=== PATIENT | male | born 1980 | race African-American/Black ===

== ENCOUNTER 2016-05-26 17:53 | Emergency (ER) | payer SELFPAY ==
[~2016-05-26] VITALS: Ht 172.7 cm; Wt 80.5 kg
[~2016-05-26 17:53] MED LIST: FLUC150T PO; MICO2CRE4 TOP
[2016-05-26 17:54] VITALS: BP 144/80; PULSE 50; RESP 16; TEMP 98.7; O2SAT 100
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
[2016-05-26] MEDS ORDERED: PROPARACAINE HCL 0.5% OPHT SOLN 15 ML BTL RIGHT EYE ONE (19:30)
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
[2016-05-26] MEDS ORDERED: PRED1SUS RIGHT EYE (19:57)
[2016-05-26] MEDS ORDERED: TYLETAB34 PO (19:57)
[2016-05-26] MEDS ORDERED: IBUP800T23 PO (19:57)
[2016-05-26] MEDS ORDERED: prednisoLONE ACETATE 1% OPHT SUSP 5 ML BTL RIGHT EYE ONE (20:00)
== END 2016-05-26 20:26 | disposition home or self-care (01) ==
LOC: NEPK 17:53
DX: H20.9 Unspecified iridocyclitis (principal)
CPT/HCPCS: 99283

== ENCOUNTER 2017-02-14 09:34 | Emergency (ER) | payer SELFPAY ==
[~2017-02-14] VITALS: Ht 172.7 cm; Wt 75.0 kg
[~2017-02-14 09:34] MED LIST changes: -FLUC150T PO; +IBUP1TAB7 PO; -MICO2CRE4 TOP; +PRED1SUS RIGHT EYE; +TYLETAB34 PO
[2017-02-14 09:36] VITALS: BP 160/82; PULSE 60; RESP 16; TEMP 98.8; O2SAT 99
[2017-02-14] MEDS ORDERED: KETOROLAC TROMETHAMINE 60 MG/2 ML (IM) VIAL IM ONE (10:15)
--- NOTE | 2017-02-14 10:21 | PD ---
HPI Chief Complaint: Musculoskeletal Complaint Time Seen by Provider: 09:58 Travel History International Travel<30 days: No Contact w/Intl Traveler<30days: No Traveled to known affect area: No History of Present Illness HPI The patient is a 36-year-old [place] male who presents emergency department for left-sided chest pain. The patient states he was lifting his mother yesterday after she had a seizure, after he put his mother down, he developed some left-sided chest pain. The chest pain is located lateral aspect left chest, worse with certain types of movement, and inspiration. He denies any shortness of breath. He denies any pain with coughing. He denies any associated nausea, vomiting, or abdominal pain. He denies any direct trauma to the affected area, however, does state it started after he lifted his mother, after she had a seizure. He denies any associated cough. He denies any accompanying fever, chills, or sweats. PFSH Past Medical History Medical History: Denies Significant Hx Diminished Hearing: No Immunizations Current: Yes Past Surgical History Surgical History: No Previous Surgery Social History Alcohol Use: Yes (OCC) Tobacco Use: No Substance Use: No Allergies-Medications (Allergen,Severity, Reaction): Coded Allergies: No Known Allergies (Unverified , 05/26/16) Reported Meds & Prescriptions Reported Meds & Active Scripts Active No Active Prescriptions or Reported Medications Review of Systems Except as stated in HPI: all other systems reviewed are Neg General / Constitutional: No: Fever, Chills HENT: No: Lightheadedness Cardiovascular: Positive: Chest Pain or Discomfort Respiratory: No: Cough, Shortness of Breath Gastrointestinal: No: Nausea, Vomiting Physical Exam Narrative GENERAL: Awake, alert, pleasant 36-year-old male who appears his stated age and is in no acute respiratory distress. SKIN: Focused skin assessment warm/dry. HEAD: Atraumatic. Normocephalic. EYES: Pupils equal and round. No scleral icterus. No injection or drainage. ENT: No nasal bleeding or discharge. Mucous membranes pink and moist. NECK: Trachea midline. No JVD. CARDIOVASCULAR: Regular rate and rhythm. No murmur appreciated. Palpation left chest wall does not reproduce pain, however, rotation of the thorax the left and right reproduces pain. No crepitus noted. RESPIRATORY: No accessory muscle use. Clear to auscultation. Breath sounds equal bilaterally. GASTROINTESTINAL: Abdomen soft, non-tender, nondistended. No tenderness of the left upper quadrant. MUSCULOSKELETAL: No obvious deformities. No clubbing. No cyanosis. No edema. NEUROLOGICAL: Awake and alert. No obvious cranial nerve deficits. Motor grossly within normal limits. Normal speech. PSYCHIATRIC: Appropriate mood and affect; insight and judgment normal. Data Data Last Documented VS Vital Signs Date Time Temp Pulse Resp B/P (MAP) Pulse Ox O2 Delivery O2 Flow Rate FiO2 02/14/17 09:36 98.8 60 16 160/82 (108) 99 Room Air Orders Orders Ketorolac Inj (Toradol Inj) (02/14/17 10:15) Chest, Single Ap (02/14/17 ) [facility] Medical Decision Making Medical Screen Exam Complete: Yes Emergency Medical Condition: Yes Medical Record Reviewed: Yes Interpretation(s) Last Impressions Chest X-Ray 02/14/17 0000 Signed Impressions: Service Date/Time: Tuesday, February 14, 2017 10:37 - CONCLUSION: No acute disease. Koko Metcalf MD Differential Diagnosis Differential diagnosis includes chest wall pain, intercostal pain, musculoskeletal pain, pneumothorax, neuralgia. Narrative Course The patient was administered Toradol 60 mg IM. Upright chest x-ray was obtained to evaluate for possible pneumothorax. Chest x-rays unremarkable, no evidence of pneumothorax. The patient most likely strained intercostal muscles. The patient will be placed on anti-inflammatories and muscle relaxers. He is advised to follow-up with a primary physician. Return if symptoms worsen or progress. Diagnosis Primary Impression: Intermittent left-sided chest pain Patient Instructions: General Instructions Additional Instructions: Medications as directed. Avoid activities that exacerbate pain. Follow-up with her primary physician. Please provide the patient a copy of his chest x- ray results at discharge. Return if symptoms worsen or progress. Med/Other Pt SpecificInfo: Prescription(s) given Scripts Cyclobenzaprine (Flexeril) 10 Mg Tab 10 MG PO TID for Muscle Spasm for 10 Days, #30 TAB 0 Refills Prov: Sarkis Avalos MD 02/14/17 Ibuprofen (Ibuprofen) 600 Mg Tab 600 MG PO Q6H Y for Pain/Inflammation, #20 TAB 0 Refills Prov: Sarkis Avalos MD 02/14/17 Disposition: 01 DISCHARGE HOME Condition: Stable Sarkis Avalos MD Feb 14, 2017 10:21
--- NOTE | 2017-02-14 10:56 | RADRPT ---
EXAM DATE/TIME: 02/14/2017 10:37 [facility] COMPARISON: No previous studies available for comparison. INDICATIONS : Left sided chest pain. MEDICAL HISTORY : None. SURGICAL HISTORY : None. ENCOUNTER: Initial ACUITY: 2 days PAIN SCORE: 8/10 LOCATION: Left chest FINDINGS: A single view of the chest demonstrates the lungs to be symmetrically aerated without evidence of mas s, infiltrate or effusion. The cardiomediastinal contours are unremarkable. Osseous structures are intact. CONCLUSION: No acute disease. Koko Metcalf MD on February 14, 2017 at 10:55 Board Certified Radiologist. This report was verified electronically.
[2017-02-14] MEDS ORDERED: IBUP-232 PO (11:16)
[2017-02-14] MEDS ORDERED: CYCL10TA PO (11:16)
== END 2017-02-14 11:41 | disposition home or self-care (01) ==
LOC: NEPD 09:34
DX: R07.9 Chest pain, unspecified (principal); R56.9 Unspecified convulsions
CPT/HCPCS: 71010; 96372; 99284; J1885